=== PATIENT | female | born 1950 | race Caucasian/White ===

== ENCOUNTER 2021-11-23 10:02 | Outpatient (CLI) | payer MEDICARE | END 2021-11-23 10:03 | disposition home or self-care (01) | LOC: CSHMAMMO 10:02 | PROVIDERS: ATTEND Nurse Practitioner Family | DX: Z12.31 Encounter for screening mammogram for malignant neoplasm of breast (principal); Z13.820 Encounter for screening for osteoporosis; M81.0 Age-related osteoporosis without current pathological fracture; Z78.0 Asymptomatic menopausal state | CPT/HCPCS: 77063; 77067; 77080 ==

== ENCOUNTER 2024-02-23 12:17 | Outpatient (CLI) | payer MEDICARE, OTHER | END 2024-02-23 12:18 | disposition home or self-care (01) | LOC: CSHULT 12:17 | PROVIDERS: ATTEND Nurse Practitioner Family | DX: R42 Dizziness and giddiness (principal); I65.22 Occlusion and stenosis of left carotid artery; I51.9 Heart disease, unspecified | CPT/HCPCS: 93306; 93880 ==